=== PATIENT | female | born 1955 | race African-American/Black ===

== ENCOUNTER 2017-12-27 12:56 | Emergency (ER) | payer OTHER ==
[2017-12-27 13:19] VITALS: BP 147/77; PULSE 96; TEMP 98.7; BMI 44.0
[2017-12-27] MEDS ORDERED: KETOROLAC TROMETHAMINE 60 MG/2 ML VIAL IM ONE (13:50)
[2017-12-27] MEDS ORDERED: KETOROLAC TROMETHAMINE 60 MG/2 ML VIAL ONE (13:58)
--- NOTE | 2017-12-27 13:59 | PDOC ---
History of Present Illness - General Chief Complaint: Back Pain Stated Complaint: LEFT MIDDLE BACK PAIN Time Seen by Provider: 12/27/17 13:39 History Source: Patient Exam Limitations: No Limitations - History of Present Illness Initial Comments: 12/27/17 14:16 PAtient with significant musculoskeletal problems including chronic knee pain from knee replacement, chronic low back pain and currently involved with pain management and physical therapy for same. States had an onset of left upper back pain that gradually started this morning is progressively worsened. States feels similar to spasmodic low back pain but has not taken any medications for relief of same. Patient denies any cough, recent URIs, any fevers. Is no chest pain or palpitations, takes medication for hypertension but states is well- controlled. His antispasmodics in the past including cyclobenzaprine and uses ibuprofen for anti-inflammatory purposes. 12/27/17 17:14 Severity: reports: moderate Pain Location: reports: back Method of Injury: Yes: unknown Associated Symptoms (Fall): denies symptoms Past History - Travel Traveled outside of the country in the last 30 days: No Close contact w/someone who was outside of country & ill: No - Past Medical History Allergies/Adverse Reactions: Allergies Allergy/AdvReac Type Severity Reaction Status Date / Time No Known Allergies Allergy Verified 12/27/17 13:14 Home Medications: Ambulatory Orders Amlodipine Bes/Olmesartan Med [Kory 10-20 mg Tablet] 1 each PO DAILY 07/02/14 Lansoprazole [Prevacid -] 15 mg PO DAILY 07/02/14 Cyclobenzaprine HCl 10 mg PO Q8H PRN #14 tablet 12/27/17 Naproxen [Naprosyn -] 500 mg PO BID #30 tablet 12/27/17 Anemia: No Asthma: No Cancer: No Cardiac Disorders: No CVA: No COPD: No CHF: No Dementia: No Diabetes: No GI Disorders: Yes Disorders: No HTN: Yes Hypercholesterolemia: Yes Liver Disease: No Seizures: No Thyroid Disease: No - Surgical History Abdominal Surgery: No Appendectomy: No Cardiac Surgery: No Cholecystectomy: No Lung Surgery: No Neurologic Surgery: No Orthopedic Surgery: Yes - Suicide/Smoking/Psychosocial Hx Smoking History: Former smoker Have you smoked in the past 12 months: Yes Number of Cigarettes Smoked Daily: 1 Information on smoking cessation initiated: No Hx Alcohol Use: Yes (occas) Drug/Substance Use Hx: No Substance Use Type: None Hx Substance Use Treatment: No Review of Systems - Review of Systems Able to Perform ROS?: Yes Is the patient limited Hebrew proficient: Yes Constitutional: Yes: Symptoms Reported, See HPI, Malaise HEENTM: Yes: See HPI. No: Symptoms Reported Respiratory: Yes: See HPI. No: Symptoms reported, Cough, Shortness of Breath ABD/GI: No: Symptoms Reported Musculoskeletal: Yes: Symptoms Reported, See HPI, Back Pain (upepr left trapezius ) All Other Systems: Reviewed and Negative *Physical Exam - Vital Signs Last Vital Signs Temp Pulse Resp BP Pulse Ox 98.7 F 96 H 19 147/77 98 12/27/17 13:15 12/27/17 13:15 12/27/17 13:15 12/27/17 13:15 12/27/17 13:15 - Physical Exam General Appearance: Yes: Nourished, Appropriately Dressed, Apparent Distress, Mild Distress, Moderate Distress HEENT: positive: [place], Normal ENT Inspection, TMs Normal, Pharynx Normal Neck: positive: Supple. negative: Tender Respiratory/Chest: positive: Lungs Clear, Normal Breath Sounds, Other. negative : Decreased Breath Sounds, Wheezing Gastrointestinal/Abdominal: positive: Soft (no pleuritic chest pain) Musculoskeletal: positive: Normal Inspection, Decreased Range of Motion, Muscle Spasm (palpable spasm and point tenderness of the inferior aspect of left trapezius musculature. Has some mild palpable spasm noted along the paravertebral spinous muscles from waist up to scapula. Left arm has full range of motion, which reproduces some of this pain.). negative: Vertebral Tenderness Extremity: positive: Normal Capillary Refill, Normal Inspection, Normal Range of Motion. negative: Tender Integumentary: positive: Normal Color, Dry. negative: Swelling Neurologic: positive: student records specialist II-XII NML intact, Fully Oriented, Alert, Normal Mood/ Affect, Normal Response Progress Note - Progress Note Progress Note: Acute on chronic back pain. Patient with thoracic and trapezial pain. Will continue using cyclobenzaprine as patient reports good resolved, continue anti- inflammatories and continue with physical therapy on Saturday as previously scheduled. *DC/Admit/Observation/Transfer Diagnosis at time of Disposition: Acute exacerbation of chronic low back pain - Discharge Dispostion Disposition: HOME Condition at time of disposition: Stable Decision to Admit order: No - Prescriptions Prescriptions: Cyclobenzaprine HCl 10 mg PO Q8H PRN #14 tablet PRN Reason: spasm Naproxen [Naprosyn -] 500 mg PO BID #30 tablet - Referrals Referrals: Kaykay Garcia MD [Primary Care Provider] - - Patient Instructions Printed Discharge Instructions: DI for Thoracic Back Pain Additional Instructions: Rest, no heavy lifting or exercise until pain is resolved Hot soaks to neck and low back as often as possible/hot showers or Jacuzzis No massage or therapy until spasm is gone Continue Naprosyn 500 mg tablet, 1 tablet every 12 hours for the next 3 days then as needed for pain and swelling Cyclobenzaprine 1-10mg every 8 hours as needed for spasm If not significant improvement within 24 hours with medication and rest regime, followup with private physician for change in medications and /or therapy. - Post Discharge Activity Forms/Work/School Notes: Back to Work
== END 2017-12-27 14:16 | disposition home or self-care (01) ==
LOC: JERFT 12:56
PROC: 3E0233Z Introduction of Anti-inflammatory into Muscle, Percutaneous Approach (ICD-10-PCS; principal; 2017-12-27)
DX: M54.5 Low back pain (principal); G89.29 Other chronic pain
CPT/HCPCS: 96372; 99281-25

== ENCOUNTER 2018-01-17 21:07 | Observation (INO) | payer OTHER ==
[2018-01-17 21:20] VITALS: BMI 43.5
--- NOTE | 2018-01-17 21:21 | PDOC ---
Rapid Medical Evaluation Chief Complaint: Headache Time Seen by Provider: 01/17/18 21:18 Medical Evaluation: Allergies Allergy/AdvReac Type Severity Reaction Status Date / Time No Known Allergies Allergy Verified 01/17/18 21:17 01/17/18 21:20 I have performed a brief in-person evaluation of this patient. The patient presents with a chief complaint of: New onset PINZON w/ dizziness, nausea and "feeling off balanced" x 2 days. H/o HTN, well controlled on meds Pertinent physical exam findings:stable I have ordered the following:labs/esr/CTH The patient will proceed to the ED for further evaluation. Discharge Disposition - Diagnosis Headache Qualifiers: Headache type: unspecified Headache chronicity pattern: acute headache Intractability: intractable Qualified Code(s): R51 - Headache - Referrals - Patient Instructions - Post Discharge Activity
[2018-01-17] MEDS ORDERED: ACETAMINOPHEN INJECTION 100 ML IVPB ONE (21:48)
--- NOTE | 2018-01-17 21:54 | PDOC ---
Attending Attestation - HPI HPI: This patient is a 62 year old female, with PMHx of HTN, chronic lower back (3 herniated discs & knee pain (r knee replacement), who presents to the ED with complaints of a headache since yesterday. Patient reports sudden onset, rates 9/ 10, localized in occiput. She reports that she took Motrin without relief. She also reports dizziness, worse when lying down. She also endorses nausea and dry mouth. She states pain not improved today. She also mentioned that she didn t have an appetite yesterday or today. She states that she doesnt regular get sick or have headaches. Denies visual changes. 01/17/18 22:16 - Physicial Exam PE: GENERAL: Awake, alert, and fully oriented, in no acute distress HEAD: No signs of trauma EYES: PERRLA, EOMI, sclera anicteric, conjunctiva clear ENT: Auricles normal inspection, hearing grossly normal, nares patent, oropharynx clear without exudates. Dry mucosa NECK: Normal ROM, supple, no lymphadenopathy, JVD, or masses LUNGS: Breath sounds equal, clear to auscultation bilaterally. No wheezes, and no crackles HEART: Regular rate and rhythm, normal S1 and S2, no murmurs, rubs or gallops ABDOMEN: Soft, nontender, normoactive bowel sounds. No guarding, no rebound. No masses. EXTREMITIES: Normal range of motion, no edema. No clubbing or cyanosis. No cords, erythema, or tenderness NEUROLOGICAL: Dizzy when looking to periphery. Positional dizziness. No paraspinal tenderness. Cranial nerves II through XII grossly intact. Normal speech,normal gait. SKIN: Warm, Dry, normal turgor, no rashes or lesions noted. 01/17/18 22:21 <Whitney Temple - Last Filed: 01/17/18 22:21> - Resident Resident Name: Christopher Scott - ED Attending Attestation I have performed the following: I have examined & evaluated the patient, The case was reviewed & discussed with the resident, I agree w/resident's findings & plan - Medical Decision Making 01/17/18 23:22 Pt's sed rate is 19, WNL; labs are normal; WBC normal. 01/17/18 23:42 Pt has a normal head CT. Pt has normal labs. 01/17/18 23:43 BUN/Cr elevated; due to dehydration. Pt getting hydrated with 2 L NSS. 01/18/18 06:08 Pt has no xanthochromia; no sign of a bleed. Pt still has headache and she will be admitted to observation. Her PMD is aware. Pt will be treated for UTI <Lizz Odell - Last Filed: 01/18/18 06:09> Procedures - Lumbar Puncture Site: L4-L51 Volume(ml): 5 Lumbar Puncture Kit: Adult Opening Pressure(mmHg): 19 Traumatic Tap: Yes (multiple attempts, then on 5th try successful) Tubes Obtained: 4 Clear Fluid: Yes Complications: No <Lizz Odell - Last Filed: 01/18/18 06:09>
[2018-01-17] MEDS ORDERED: ACETAMINOPHEN 1000 MG/100 ML VIAL (NON FORMULARY) IVPB ONE (21:55)
[2018-01-17] MEDS ORDERED: METOCLOPRAMIDE HCL INJECTION 10 MG/2 ML VIAL IVPB ONE (21:55)
[2018-01-17] MEDS ORDERED: SODIUM CHLORIDE 0.9% 1000 ML INFUS.BAG IV ONE ×2 (21:55→23:21)
--- NOTE | 2018-01-17 21:55 | PDOC ---
History of Present Illness - General Chief Complaint: Headache Stated Complaint: HEADACHE, NAUSEA,LOSS OF APPETITE Time Seen by Provider: 01/17/18 21:18 History Source: Patient Exam Limitations: No Limitations - History of Present Illness Initial Comments: 01/17/18 21:49 The patient is a 62F with a PMH of HTN, chronic back pain and knee pain, who presents to the ER with complaints of headache. The patient states that she had a sudden onset, 9/10 pressure like headache located in her occiput without radiation, associated with nausea without the ability to vomit, unstable gait, and "feeling funny". She denies ever having symptoms like this in the past. She has never had a headache in the past. She denies fever, chills, CP, SOB, numbness, tingling but admits to generalized weakness. Past History - Past Medical History Allergies/Adverse Reactions: Allergies Allergy/AdvReac Type Severity Reaction Status Date / Time No Known Allergies Allergy Verified 01/17/18 21:17 Home Medications: Ambulatory Orders Amlodipine Bes/Olmesartan Med [Kory 10-20 mg Tablet] 1 each PO DAILY 07/02/14 Lansoprazole [Prevacid -] 15 mg PO DAILY 07/02/14 Cyclobenzaprine HCl 10 mg PO Q8H PRN #14 tablet 12/27/17 Naproxen [Naprosyn -] 500 mg PO BID #30 tablet 12/27/17 Anemia: No Asthma: No Cancer: No Cardiac Disorders: No CVA: No COPD: No CHF: No Dementia: No Diabetes: No GI Disorders: Yes Disorders: No HTN: Yes Hypercholesterolemia: Yes Liver Disease: No Seizures: No Thyroid Disease: No - Surgical History Abdominal Surgery: No Appendectomy: No Cardiac Surgery: No Cholecystectomy: No Lung Surgery: No Neurologic Surgery: No Orthopedic Surgery: Yes - Suicide/Smoking/Psychosocial Hx Smoking History: Current some day smoker Have you smoked in the past 12 months: Yes Number of Cigarettes Smoked Daily: 1 Information on smoking cessation initiated: No Hx Alcohol Use: Yes (occas) Drug/Substance Use Hx: No Substance Use Type: None Hx Substance Use Treatment: No Review of Systems - Review of Systems Able to Perform ROS?: Yes Comments:: 01/17/18 21:59 GENERAL/CONSTITUTIONAL: Positive for generalized weakness. No fever or chills. HEAD, EYES, EARS, NOSE AND THROAT: No change in vision. No ear pain or discharge. No sore throat. CARDIOVASCULAR: No chest pain, palpitations, or lightheadedness. RESPIRATORY: No cough, wheezing, shortness of breath, or hemoptysis. GASTROINTESTINAL: Positive for nausea. No vomiting, diarrhea, constipation, or abdominal pain. GENITOURINARY: No dysuria, frequency, hematuria, or change in urination. MUSCULOSKELETAL: No joint or muscle swelling or pain. No neck or back pain. SKIN: No rash or lesions. NEUROLOGIC: Positive for headache. No numbness, tingling, focal weakness, loss of consciousness, or change in strength/sensation. Is the patient limited Setswana proficient: No *Physical Exam - Vital Signs Last Vital Signs Temp Pulse Resp BP Pulse Ox 98.4 F 103 H 20 108/64 98 01/17/18 21:17 01/17/18 21:17 01/17/18 21:17 01/17/18 21:17 01/17/18 21:17 - Physical Exam Comments: 01/17/18 22:13 GENERAL: Well developed, well nourished. Awake and alert. No acute distress. HEENT: Normocephalic, atraumatic. Hearing grossly normal. Moist mucous membranes. PERRLA, EOMI. No conjunctival pallor. Sclera are non-icteric. NECK: Supple. Full ROM. No JVD. CARDIOVASCULAR: Regular rate and rhythm. No murmurs, rubs, or gallops. PULMONARY: No evidence of respiratory distress. Lungs clear to auscultation bilaterally. No wheezing, rales or rhonchi. ABDOMINAL: Soft. Non-tender. Non-distended. No rebound or guarding. GENITOURINARY: No CVA tenderness bilaterally. MUSCULOSKELETAL: Normal range of motion at all joints. No bony deformities or tenderness. EXTREMITIES: No cyanosis. No clubbing. No edema. No calf tenderness or swelling. SKIN: Warm and dry. Normal capillary refill. No rashes. No jaundice. NEUROLOGICAL: Alert, awake, appropriate. Cranial nerves 2-12 intact. No deficits to light touch and temperature in face, upper extremities and lower extremities. 5/5 strength in deltoids, biceps, triceps, quadriceps, hamstrings, and gastrocnemius. Finger to nose normal bilaterally. Normal speech. Gait is normal without ataxia. PSYCHIATRIC: Cooperative. Good eye contact. Appropriate mood and affect. Moderate Sedation - Procedure Monitoring Vital Signs: Procedure Monitoring Vital Signs Temperature 98.4 F 01/17/18 21:17 Pulse Rate 103 H 01/17/18 21:17 Respiratory Rate 20 01/17/18 21:17 Blood Pressure 108/64 01/17/18 21:17 O2 Sat by Pulse Oximetry (%) 98 01/17/18 21:17 ED Treatment Course - LABORATORY CBC & Chemistry Diagram: 01/17/18 21:32 01/17/18 21:32 Medical Decision Making - Medical Decision Making 01/17/18 22:25 The patient is a 62M with a PMH of HTN who presents to the ER with complaints of acute onset headache, concerning for SAH vs cerebellar stroke causing vertiginous symptoms. Pt is noted to be hypotensive. Labs and CTH pending. If pt does not improve, will perform lumbar tap. Symptoms have been present for over 24 hours so she is out of the range for TPA. Will d/w neurology after CTH returns. 01/17/18 23:12 Pt's pain not improved with tylenol and reglan. Will give 4 morphine and get consent for LP. 01/18/18 00:32 Case d/w Dr. Hughes who agrees to keep the patient for MRI in the morning for further evaluation of headache. 01/18/18 03:10 CSF negative. I have endorsed the patient to Dr. Garcia for admission to evaluate hypotension and headache. *DC/Admit/Observation/Transfer Diagnosis at time of Disposition: Headache Qualifiers: Headache type: unspecified Headache chronicity pattern: acute headache Intractability: intractable Qualified Code(s): R51 - Headache Hypotension Qualifiers: Hypotension type: unspecified hypotension type Qualified Code(s): I95.9 - Hypotension, unspecified - Discharge Dispostion Condition at time of disposition: Guarded Decision to Admit order: Yes - Referrals - Patient Instructions - Post Discharge Activity
[2018-01-17 22:12] LABS: BASO % 0.7 % (0-2.0); HEMATOCRIT 40.7 % (32.4-45.2); LYMPH % 41.1 % (8-40); MCH 28.6 pg (25.7-33.7); MCHC 34.3 g/dl (32.0-36.0); MEAN CELL VOLUME 83.3 fl (80-96); MEAN PLT VOLUME 10.6 fl (7.5-11.1); MONO % 9.1 % (3.8-10.2); NEUT % 45.1 % (42.8-82.8); PLATELET COUNT 225 K/MM3 (134-434); RBC 4.89 M/mm3 (3.60-5.2); RDW 14.4 % (11.6-15.6); WHITE BLOOD COUNT 6.4 K/mm3 (4.0-10.0)
[2018-01-17] MEDS ORDERED: METOCLOPRAMIDE HCL INJECTION 10 MG/2 ML VIAL ONE (22:32)
[2018-01-17 22:56] LABS: ALBUMIN 3.6 g/dl (3.4-5.0); ALK PHOS 90 U/L (45-117); ANION GAP 8 MMOL/L (8-16); BILIRUBIN,TOTAL 0.3 mg/dL (0.2-1); BLOOD UREA NITROGEN 22 mg/dL (7-18); CHLORIDE 102 mmol/L (98-107); CO2 26 mmol/L (21-32); CREATININE 1.4 mg/dL (0.55-1.3); GLUCOSE,RANDOM 90 mg/dL (74-106); POTASSIUM 3.6 mmol/L (3.5-5.1); SGOT/AST 23 U/L (15-37); SGPT/ALT 27 U/L (13-61); SODIUM 137 mmol/L (136-145); TOT PROT 7.6 g/dl (6.4-8.2)
[2018-01-17] MEDS ORDERED: morphine CARPU-JECT 4 MG/1 ML DISP.SYRIN IVPUSH ONE ×2 (23:12→23:25)
[2018-01-17 23:15] LABS: URINE APPEARANCE CLOUDY; URINE BILIRUBIN NEGATIVE (<2.0 mg/dL); URINE COLOR YELLOW; URINE GLUCOSE (UA) NEGATIVE (NEGATIVE); URINE KETONE NEGATIVE (NEGATIVE); URINE LEUK ESTERASE 2+ (NEGATIVE); URINE NITRITE NEGATIVE (NEGATIVE); URINE PROTEIN NEGATIVE (NEGATIVE); URINE UROBILINOGEN NEGATIVE mg/dL (0.2-1.0)
[2018-01-17] MEDS ORDERED: MECLIZINE HCL 25 MG TABLET (FP) PO ONE (23:22)
[2018-01-17] MEDS ORDERED: morphine SULFATE 4 MG/ML VIAL ONE (23:24)
[2018-01-17] MEDS ORDERED: MECLIZINE HCL 25 MG TABLET (FP) ONE (23:24)
[2018-01-17 23:27] LABS: EPI CELLS MANY /HPF (FEW); URINE BACTERIA FEW /hpf (NONE SEEN); URINE MUCUS RARE; YEAST RARE
[2018-01-17 23:28] LABS: INR 1.03 (0.83-1.09); PROTHROMBIN TIME (PATIENT) 12.2 SEC (9.7-13.0)
[2018-01-17] MEDS ORDERED: MORPHINE SULFATE 2 MG/ML VIAL ONE (23:29)
[2018-01-17] MEDS ORDERED: CEFTRIAXONE 1,000 MG in DEXTROSE 5%-WATER - 50 ML IVPB ONE (23:41)
[2018-01-18] MEDS ORDERED: LIDOCAINE HCL 1%, 10 MG/ML (50 mL VIAL) SQ ONE (00:22)
[2018-01-18 02:12] LABS: CSF APPEARANCE CLEAR; CSF COLOR PINK
[2018-01-18 02:13] LABS: CSF WBC 2
[2018-01-18 02:15] LABS: CSF APPEARANCE CLEAR; CSF COLOR COLORLESS; CSF WBC 0
[2018-01-18 02:52] LABS: BF GLUCOSE (CSF ONLY) 57 mg/dL (40-70)
[2018-01-18 02:59] LABS: BF GLUCOSE (CSF ONLY) 57 mg/dL (40-70)
[2018-01-18 03:00] LABS: BF GLUCOSE (CSF ONLY) 57 mg/dL (40-70)
[2018-01-18] MEDS ORDERED: CEFTRIAXONE 1,000 MG in DEXTROSE 5%-WATER - 50 ML IVPB ONE (03:37)
[2018-01-18] MEDS ORDERED: CEFTRIAXONE 1 GM/50 ML BAG ONE ×2 (03:38→14:36)
[2018-01-18] MEDS ORDERED: CEFTRIAXONE 1,000 MG in DEXTROSE 5%-WATER - 50 ML IVPB SCH (13:30)
[2018-01-18] MEDS ORDERED: PATIENT'S OWN MEDICATION (NON-FORMULARY) (Gabapentin [Gabapentin] 600 MG) PO SCH (13:30)
[2018-01-18] MEDS ORDERED: GABAPENTIN 300 MG CAPSULE (FP) PO SCH (14:00)
[2018-01-18] MEDS ORDERED: oxyCODONE HCL 5 MG TABLET PO ONE (14:30)
[2018-01-18] MEDS ORDERED: ACETAMINOPHEN 325 MG TABLET (FP) PO ONE (14:30)
[2018-01-18] MEDS ORDERED: oxyCODONE HCL 10 MG SUSTAINED ACTING TABLET ONE (14:35)
[2018-01-18] MEDS ORDERED: PANTOPRAZOLE 40 MG TABLET (FP) ONE (14:35)
[2018-01-18] MEDS ORDERED: ACETAMINOPHEN 325 MG TABLET (FP) ONE (14:35)
[2018-01-18] MEDS ORDERED: METOPROLOL TARTRATE 50 MG TABLET (FP) ONE (14:36)
[2018-01-18] MEDS: PANTOPRAZOLE 40 MG TABLET (FP) PO SCH (14:48)
[2018-01-18] MEDS: METOPROLOL TARTRATE 50 MG TABLET (FP) PO SCH (14:48)
[2018-01-18] MEDS: amLODIPine BESYLATE 10 MG TABLET (FP) PO SCH (14:48)
--- NOTE | 2018-01-18 15:51 | CON.NEURO ---
Consult - Alcohol/Substance Use Hx Alcohol Use: Yes (occas) - Smoking History Smoking history: Current some day smoker Have you smoked in the past 12 months: Yes Aproximately how many cigarettes per day: 1 Home Medications - Allergies Allergies/Adverse Reactions: Allergies Allergy/AdvReac Type Severity Reaction Status Date / Time No Known Allergies Allergy Verified 01/17/18 21:17 - Home Medications Home Medications: Ambulatory Orders Amlodipine Bes/Olmesartan Med [Kory 10-20 mg Tablet] 1 each PO DAILY 07/02/14 Lansoprazole [Prevacid -] 15 mg PO DAILY 07/02/14 Cyclobenzaprine HCl 10 mg PO Q8H PRN #14 tablet 12/27/17 Naproxen [Naprosyn -] 500 mg PO BID #30 tablet 12/27/17 Gabapentin 600 mg PO DAILY 01/18/18 Metoprolol Tartrate 50 mg PO DAILY 01/18/18 Oxycodone HCl/Acetaminophen [Percocet 10-325 mg Tablet] 1 each PO DAILY Zolpidem Tartrate 10 mg PO DAILY 01/18/18 Physical Exam-Neuro Vital Signs: Vital Signs Temperature 98 F 01/18/18 14:45 Pulse Rate 91 H 01/18/18 14:45 Respiratory Rate 18 01/18/18 14:45 Blood Pressure 127/69 01/18/18 14:45 O2 Sat by Pulse Oximetry (%) 98 01/18/18 14:45 Labs: CBC, BMP 01/17/18 21:32 01/17/18 21:32 INR, PTT INR 1.03 (0.83-1.09) 01/17/18 23:00 Assessment/Plan cc Severe headhace since January 16 HPI 62 year old female hsitory of HTN, Low back pain, knee pain ( s/p knee replacement). She has severe headhace in occpital region , and it was associated with dizziness, and worse with laying down. Paitnet has ct head it was unremarkable. There is no history of migraine, no fever, LOC OR seizure like activity. Patient took motrin and it did not get better. PMH as above Social History, FH, ROS reviewed in chart Medication Ceftrioxone, gabapentin, ambien, metoprolol, amlodipien, protonix Neurological Examination Complain of pain 2/10, alert oriented x 3 speech is normal, no neck stiffness EOMI, Pupils is reactive, no face asymmetry Motor 5/5 all ext sensation is normal, gait not tested CT head unremarkable csf , WBC IS 2, PROTEIN IS 37 mg and rbc is 150 and other tube has rbc of 6( Most likley to be traumatic spinal tap) Assessment 1. Severe thunderclap headhace, etiology unclear, unlikley to be Meningitis. CSF is not sent in four tubes so it is not clear if csf was clearing of blood or all four of tube has similar color . PLAN: Suggest to do mri of brain and mra of brain for acute thunderclap headhace , unlikley to be SAH -Continue supportive care and work up for hypotension -NSAID PRN for headahce Thanking you so much Cricket Hughes MD
--- NOTE | 2018-01-18 21:22 | EKG ---
Test Reason : Blood Pressure : / mmHG Vent. Rate : 103 BPM Atrial Rate : 103 BPM P-R Int : 154 ms QRS Dur : 088 ms QT Int : 350 ms P-R-T Axes : 065 020 050 degrees QTc Int : 458 ms SINUS TACHYCARDIA OTHERWISE NORMAL ECG WHEN COMPARED WITH ECG OF 15-OCT-2008 11:06, NO SIGNIFICANT CHANGE WAS FOUND Confirmed by GABRIEL BERUMEN MD ([id number]) on 01/18/2018 9:21:52 PM Referred By: Confirmed By:GABRIEL BERUMEN MD
[2018-01-18] MEDS: ZOLPIDEM TARTRATE 5 MG TABLET PO PRN (21:31)
--- NOTE | 2018-01-18 21:51 | HP ---
Admitting History and Physical - Admission History of Present Illness: The patient is a 62F with a PMH of HTN, obesity, chronic back pain and knee pain , who presents to the ER with complaints of headache. The patient states that she had a sudden onset, 9/10 pressure like headache located in her occiput without radiation, associated with nausea without the ability to vomit, unstable gait, and "feeling funny". She denies ever having symptoms like this in the past. States took multiple doses of NSAIDs with no improvement in symptoms. She has never had a headache in the past. She denies fever, chills, CP , SOB, numbness, tingling but admits to generalized weakness. History Source: Patient, Medical Record Limitations to Obtaining History: No Limitations - Past Medical History Cardiovascular: Yes: HTN, Hyperlipdemia ...: No Musculoskeletal: Yes: Chronic low back pain, Osteoarthritis - Smoking History Smoking history: Current some day smoker Have you smoked in the past 12 months: Yes Aproximately how many cigarettes per day: 1 - Alcohol/Substance Use Hx Alcohol Use: Yes (social) - Social History Usual Living Arrangement: Yes: With Spouse ADL: Independent History of Recent Travel: No Home Medications - Allergies Allergies/Adverse Reactions: Allergies Allergy/AdvReac Type Severity Reaction Status Date / Time No Known Allergies Allergy Verified 01/17/18 21:17 - Home Medications Home Medications: Ambulatory Orders Amlodipine Bes/Olmesartan Med [Kory 10-20 mg Tablet] 1 each PO DAILY 07/02/14 Lansoprazole [Prevacid -] 15 mg PO DAILY 07/02/14 Cyclobenzaprine HCl 10 mg PO Q8H PRN #14 tablet 12/27/17 Naproxen [Naprosyn -] 500 mg PO BID #30 tablet 12/27/17 Gabapentin 600 mg PO DAILY 01/18/18 Metoprolol Tartrate 50 mg PO DAILY 01/18/18 Oxycodone HCl/Acetaminophen [Percocet 10-325 mg Tablet] 1 each PO DAILY Zolpidem Tartrate 10 mg PO DAILY 01/18/18 Review of Systems - Review of Systems Constitutional: denies: Chills, Fever, Night Sweats Eyes: denies: Blurred Vision, Photophobia HENT: reports: No Symptoms Neck: reports: No Symptoms Cardiovascular: denies: Chest Pain, Palpitations, Shortness of Breath Respiratory: reports: No Symptoms Gastrointestinal: reports: No Symptoms Genitourinary: reports: No Symptoms Musculoskeletal: reports: Back Pain, Muscle Weakness, Other (unsteady gait) Neurological: reports: Dizziness, Headache, Unsteady Gait Endocrine: reports: No Symptoms Hematology/Lymphatic: reports: No Symptoms Psychiatric: reports: No Symptoms Physical Examination Vital Signs: Vital Signs Temperature 97.4 F L 01/18/18 17:54 Pulse Rate 92 H 01/18/18 17:54 Respiratory Rate 18 01/18/18 17:54 Blood Pressure 115/70 01/18/18 17:54 O2 Sat by Pulse Oximetry (%) 96 01/18/18 18:07 Constitutional: Yes: Well Nourished, Obese Eyes: Yes: Conjunctiva Clear, EOM Intact HENT: Yes: Atraumatic, Normocephalic Neck: Yes: Supple, Trachea Midline Cardiovascular: Yes: Regular Rate and Rhythm Respiratory: Yes: Regular, CTA Bilaterally Gastrointestinal: Yes: Normal Bowel Sounds, Soft, Abdomen, Obese ...Rectal Exam: Yes: Deferred Renal/: Yes: WNL Breast(s): Yes: WNL Musculoskeletal: Yes: Back Pain, Other (joint pain) Edema: No Peripheral Pulses WNL: Yes Integumentary: Yes: WNL Neurological: Yes: Unsteady Gait ...Motor Strength: WNL Psychiatric: Yes: WNL Labs: CBC, BMP 01/17/18 21:32 01/17/18 21:32 Problem List - Problems (1) HTN (hypertension) Code(s): I10 - ESSENTIAL (PRIMARY) HYPERTENSION (2) Obesity (BMI 30-39.9) Code(s): E66.9 - OBESITY, UNSPECIFIED (3) Unsteady gait Code(s): R26.81 - UNSTEADINESS ON FEET (4) Headache Code(s): R51 - HEADACHE Qualifiers: Headache type: unspecified Headache chronicity pattern: acute headache Intractability: intractable Qualified Code(s): R51 - Headache (5) Hypotension Code(s): I95.9 - HYPOTENSION, UNSPECIFIED Qualifiers: Hypotension type: unspecified hypotension type Qualified Code(s): I95.9 - Hypotension, unspecified (6) Acute exacerbation of chronic low back pain Code(s): M54.5 - LOW BACK PAIN; G89.29 - OTHER CHRONIC PAIN Assessment/Plan # new onset headaches appreciate neurology consult / follow up report less episodes of headache but currently ++ headache Indocin TID per Neurology add Mag / periactin as supplement Ct of head / MRI /MRA reviewed # HTN trend BP all home meds have NOT been renewed only renewed amlodipine # constipation Miralax / colace # chronic Lower Back pain f
[2018-01-19 07:50] LABS: BASO % 0.6 % (0-2.0); EOS % 3.6 % (0-4.5); HEMATOCRIT 37.3 % (32.4-45.2); HEMOGLOBIN 12.9 GM/dL (10.7-15.3); LYMPH % 33.8 % (8-40); MCH 28.8 pg (25.7-33.7); MCHC 34.5 g/dl (32.0-36.0); MEAN CELL VOLUME 83.4 fl (80-96); MEAN PLT VOLUME 10.4 fl (7.5-11.1); MONO % 11.1 % (3.8-10.2); NEUT % 50.9 % (42.8-82.8); PLATELET COUNT 175 K/MM3 (134-434); RBC 4.47 M/mm3 (3.60-5.2); RDW 14.2 % (11.6-15.6); WHITE BLOOD COUNT 5.1 K/mm3 (4.0-10.0)
[2018-01-19 08:54] LABS: ALBUMIN 3.2 g/dl (3.4-5.0); ALK PHOS 80 U/L (45-117); ANION GAP 10 MMOL/L (8-16); BILIRUBIN,TOTAL 0.3 mg/dL (0.2-1); BLOOD UREA NITROGEN 19 mg/dL (7-18); CALCIUM 8.6 mg/dL (8.5-10.1); CHLORIDE 106 mmol/L (98-107); CHOLESTEROL 207 mg/dL (50-200); CO2 26 mmol/L (21-32); CREATININE 1.1 mg/dL (0.55-1.3); GLUCOSE,RANDOM 78 mg/dL (74-106); HDL CHOLESTEROL 47 mg/dL (40-60); POTASSIUM 4.1 mmol/L (3.5-5.1); SGOT/AST 17 U/L (15-37); SGPT/ALT 21 U/L (13-61); SODIUM 142 mmol/L (136-145); TOT PROT 6.6 g/dl (6.4-8.2); TRIGLYCERIDES 113 mg/dL (0-150)
[2018-01-19] MEDS: METOPROLOL TARTRATE 50 MG TABLET (FP) PO SCH (10:28)
[2018-01-19] MEDS: amLODIPine BESYLATE 10 MG TABLET (FP) PO SCH (10:28)
[2018-01-19] MEDS: GABAPENTIN 300 MG CAPSULE (FP) PO SCH (10:28)
[2018-01-19] MEDS: PANTOPRAZOLE 40 MG TABLET (FP) PO SCH (10:28)
--- NOTE | 2018-01-19 11:31 | PN ---
Progress Note (short form) - Note Progress Note: HPI 62 year old female hsitory of HTN, Low back pain, knee pain ( s/p knee replacement). She has severe headhace in occpital region , and it was associated with dizziness, and worse with laying down. Paitnet has ct head it was unremarkable. There is no history of migraine, no fever, LOC OR seizure like activity. Patient had mri of brain and mra of brain . Patient having headhace comes and goes . Her headhace last 20 minute and laying down helps her. Neurological Examination Complain of pain 2/10, alert oriented x 3 speech is normal, no neck stiffness EOMI, Pupils is reactive, no face asymmetry Motor 5/5 all ext sensation is normal, gait not tested CT head unremarkable csf , WBC IS 2, PROTEIN IS 37 mg and rbc is 150 and other tube has rbc of 6( Most likley to be traumatic spinal tap) mri of brain and mra is pending Assessment 1. Severe thunderclap headhace, etiology unclear, unlikley to be Meningitis. she is feeling better but headhace still coming back and last 20 m inute PLAN: mri of brain and mra of brain is normal, trial of indomethacin 25 mg po tid - supportive care Thanking you so much Cricket Hughes MD
[2018-01-19] MEDS ORDERED: cefTRIAXone SODIUM 1 GM VIAL ONE ×2 (12:42→13:08)
[2018-01-19] MEDS ORDERED: DEXTROSE 5%-WATER - 50 ML IVPB ONE ×2 (12:43→13:08)
[2018-01-19] MEDS: CEFTRIAXONE 1 GM in DEXTROSE 5%-WATER - 50 ML IVPB SCH (13:10)
[2018-01-19] MEDS ORDERED: PT OWN MED DRAWER 7, Y5N ONE ×2 (13:42→22:41)
[2018-01-19] MEDS: INDOMETHACIN 25 MG CAPSULE PO SCH ×2 (13:47→22:57)
--- NOTE | 2018-01-19 15:44 | PN ---
Progress Note (short form) - Note Progress Note: seen and examined in room patient lying in bed + headache "painful " to interact c/o constipation Vital Signs Period Temp Pulse Resp BP Sys/Orozco Pulse Ox Last 24 Hr 97.4 F-98.4 F 92-109 18-20 105-125/53-70 96 neck supple / no nodes heart s1/S2 lungs clear bilat abd soft non tender ext no edema CBC, BMP 01/19/18 06:32 01/19/18 06:32 Microbiology 01/18/18 01:23 Cerebral Spinal Fluid - Lumbar Puncture Gram Stain - Final 01/18/18 01:23 Cerebral Spinal Fluid - Lumbar Puncture CSF Culture - Preliminary NO GROWTH OBTAINED AFTER 24 HOURS INCUBATION, REINCUBATED. Active Medications Amlodipine Besylate (Norvasc -) 10 mg PO DAILY [facility] Last Admin: 01/19/18 10:28 Dose: 10 mg Cyproheptadine HCl (Periactin -) 4 mg PO HS [facility] Docusate Sodium (Colace -) 200 mg PO BID [facility] Gabapentin (Neurontin -) 600 mg PO DAILY [facility] Last Admin: 01/19/18 10:28 Dose: 600 mg Ceftriaxone Sodium 1 gm/ (Dextrose) 50 mls @ 100 mls/hr IVPB DAILY [facility] Last Admin: 01/19/18 13:10 Dose: 100 mls/hr Indomethacin (Indocin -) 25 mg PO TID [facility] Last Admin: 01/19/18 13:47 Dose: 25 mg Magnesium Oxide (Mag-Ox -) 400 mg PO BID@0800,2000 [facility] Metoprolol Tartrate (Lopressor -) 50 mg PO DAILY [facility] Last Admin: 01/19/18 10:28 Dose: 50 mg Pantoprazole Sodium (Protonix -) 40 mg PO DAILY [facility] Last Admin: 01/19/18 10:28 Dose: 40 mg Polyethylene Glycol (Miralax (For Daily Use) -) 17 gm PO TID [facility] Zolpidem Tartrate (Ambien -) 10 mg PO HS PRN PRN Reason: INSOMNIA Last Admin: 01/18/18 21:31 Dose: 10 mg # new onset headaches appreciate neurology consult / follow up report less episodes of headache but currently ++ headache Indocin TID per Neurology add Mag / periactin as supplement Ct of head / MRI /MRA reviewed # HTN trend BP all home meds have NOT been renewed only renewed amlodipine # constipation Miralax / colace # chronic Lower Back pain followed as out patient by pain Managmt Problem List - Problems (1) HTN (hypertension) Code(s): I10 - ESSENTIAL (PRIMARY) HYPERTENSION (2) Obesity (BMI 30-39.9) Code(s): E66.9 - OBESITY, UNSPECIFIED (3) Unsteady gait Code(s): R26.81 - UNSTEADINESS ON FEET (4) Headache Code(s): R51 - HEADACHE Qualifiers: Headache type: unspecified Headache chronicity pattern: acute headache Intractability: intractable Qualified Code(s): R51 - Headache (5) Hypotension Code(s): I95.9 - HYPOTENSION, UNSPECIFIED Qualifiers: Hypotension type: unspecified hypotension type Qualified Code(s): I95.9 - Hypotension, unspecified (6) Acute exacerbation of chronic low back pain Code(s): M54.5 - LOW BACK PAIN; G89.29 - OTHER CHRONIC PAIN
[2018-01-19] MEDS: POLYETHYLENE GLYCOL 3350 119 GM BTL PO SCH ×2 (15:45→22:56)
--- NOTE | 2018-01-19 17:14 | EKG ---
Test Reason : Blood Pressure : / mmHG Vent. Rate : 095 BPM Atrial Rate : 095 BPM P-R Int : 166 ms QRS Dur : 084 ms QT Int : 334 ms P-R-T Axes : 064 006 019 degrees QTc Int : 419 ms NORMAL SINUS RHYTHM NORMAL ECG WHEN COMPARED WITH ECG OF 17-JAN-2018 21:25, NO SIGNIFICANT CHANGE WAS FOUND Confirmed by GABRIEL BERUMEN MD ([id number]) on 01/19/2018 5:14:30 PM Referred By: Felicity SIMON Confirmed By:GABRIEL BERUMEN MD
[2018-01-19] MEDS ORDERED: CYPROHEPTADINE HCL 4 MG TABLET PO SCH (22:00)
[2018-01-19] MEDS: ZOLPIDEM TARTRATE 5 MG TABLET PO PRN (22:56)
[2018-01-19] MEDS: DOCUSATE SODIUM 100 MG CAPSULE (FP) PO SCH (22:57)
[2018-01-19] MEDS: MAGNESIUM OXIDE 400 MG TABLET (FP) PO SCH (22:57)
[2018-01-19] MEDS ORDERED: oxyCODONE HCL 5 MG TABLET ONE (23:18)
[2018-01-19] MEDS ORDERED: ACETAMINOPHEN 325 MG TABLET (FP) ONE (23:18)
[2018-01-19] MEDS ORDERED: oxyCODONE HCL 5 MG TABLET PO PRN (23:22)
[2018-01-19] MEDS ORDERED: ACETAMINOPHEN 325 MG TABLET (FP) PO PRN (23:24)
[2018-01-19] MEDS ORDERED: ACETAMINOPHEN 325 MG TABLET (FP) PO ONE (23:30)
[2018-01-19] MEDS ORDERED: oxyCODONE HCL 5 MG TABLET PO ONE (23:30)
[2018-01-19] MEDS ORDERED: morphine SULFATE 4 MG/ML VIAL ONE (23:33)
[2018-01-19] MEDS ORDERED: MORPHINE SULFATE 2 MG/ML VIAL IVPUSH ONE (23:35)
--- NOTE | 2018-01-19 23:40 | HOSP ---
Subjective - Review of Symptoms Subjective: Was called to bedside by the nurse as the patient had choked while taking her PM pills. Per nursing, the patient took all of her PM pills at once like she always has. Shortly after taking the pills, nursing states that the patient started to struggle to breathe and subsequently became stridorous, then her airflow stopped. The nurse performed the heimlich maneuver, dislodging a pill which the patient immediately swallowed. Patient states that she feels better and is not struggling to breathe, but feels as if her pill is stuck in her throat. On further interview, the patient states that she has been having some difficulty with taking her pills since Saturday of this month. Physical Examination Vital Signs: Vital Signs Temperature 97.7 F 01/19/18 17:00 Pulse Rate 93 H 01/19/18 17:00 Respiratory Rate 20 01/19/18 17:00 Blood Pressure 115/59 L 01/19/18 17:00 O2 Sat by Pulse Oximetry (%) 96 01/19/18 13:00 Findings/Remarks: On assessment, the patient is a&o x3, is speaking in full sentences and is not struggling to breathe. Neuro exam nonfocal. CN II-X intact b/l. Lungs CTA b/l. No stridor or wheezing heard. HEENT clear with no evidence of foreign body seen. No tenderness to palpation in the throat region. Labs: CBC, BMP 01/19/18 06:32 01/19/18 06:32 Hospitalist Encounter Assessment: Patient had choking episode in this evening. Per patient she has never had any similar episodes in the past, but does endorse difficulty with taking pills since Saturday. CT head and MRI brain both negative for infarct during this admission; stroke unlikely. This may be a one time choking episode, but since the patient has a recent history of dysphagia, underlying pathology must be ruled out. Nursing has already notified Dr. Garcia, the patient's PCP. Primary Physician Notified: Kaykay Garcia I Recommendations/Interventions: Will make patient strict NPO for now until seen by [facility]. Aspiration/dysphagia precautions Will order 2mg IV morphine 1 time as patient was supposed to receive PO oxy 10mg and is currently in pain. Dr. Garcia contacted by nurse and is aware of tonight's events. [facility] consulted to see patient in AM as per Dr. Garcia. Visit type - Emergency Visit Emergency Visit: Yes ED Registration Date: 01/18/18 Care time: The patient presented to the Emergency Department on the above date and was hospitalized for further evaluation of their emergent condition. - New Patient This patient is new to me today: Yes Date on this admission: 01/20/18 - Critical Care Critical Care patient: No
[2018-01-20 06:50] LABS: BASO % 0.5 % (0-2.0); HEMATOCRIT 38.5 % (32.4-45.2); HEMOGLOBIN 12.4 GM/dL (10.7-15.3); LYMPH % 48.1 % (8-40); MCH 27.4 pg (25.7-33.7); MCHC 32.4 g/dl (32.0-36.0); MEAN CELL VOLUME 84.6 fl (80-96); MEAN PLT VOLUME 10.5 fl (7.5-11.1); MONO % 10.2 % (3.8-10.2); NEUT % 37.2 % (42.8-82.8); PLATELET COUNT 184 K/MM3 (134-434); RBC 4.54 M/mm3 (3.60-5.2); RDW 14.4 % (11.6-15.6); WHITE BLOOD COUNT 4.8 K/mm3 (4.0-10.0)
[2018-01-20] MEDS: POLYETHYLENE GLYCOL 3350 119 GM BTL PO SCH ×2 (07:13→13:07)
[2018-01-20] MEDS: INDOMETHACIN 25 MG CAPSULE PO SCH ×2 (07:13→13:08)
[2018-01-20 08:36] LABS: ANION GAP 9 MMOL/L (8-16); BLOOD UREA NITROGEN 17 mg/dL (7-18); CALCIUM 8.7 mg/dL (8.5-10.1); CHLORIDE 105 mmol/L (98-107); CO2 25 mmol/L (21-32); CREATININE 0.9 mg/dL (0.55-1.3); GLUCOSE,RANDOM 92 mg/dL (74-106); MAGNESIUM 2.1 mg/dL (1.8-2.4); POTASSIUM 3.9 mmol/L (3.5-5.1); SODIUM 139 mmol/L (136-145)
[2018-01-20] MEDS ORDERED: DEXTROSE 5%-WATER - 50 ML IVPB ONE (09:16)
[2018-01-20] MEDS ORDERED: cefTRIAXone SODIUM 1 GM VIAL ONE (09:16)
--- NOTE | 2018-01-20 09:24 | PN ---
Progress Note (short form) - Note Progress Note: HPI 62 year old female hsitory of HTN, Low back pain, knee pain ( s/p knee replacement). She has severe headhace in occpital region , and it was associated with dizziness, and worse with laying down. Paitnet has ct head it was unremarkable. There is no history of migraine, no fever, LOC OR seizure like activity. Patient had mri of brain and mra of brain . Patient having headhace comes and goes . Her headache is better, she has chocking incident today am. Neurological Examination Headache is resolved speech is normal, no neck stiffness EOMI, Pupils is reactive, no face asymmetry Motor 5/5 all ext sensation is normal, gait not tested CT head unremarkable csf , WBC IS 2, PROTEIN IS 37 mg and rbc is 150 and other tube has rbc of 6( Most likley to be traumatic spinal tap) mri of brain and mra of brain unremarkable Assessment/Plan 1. Severe thunderclap headhace, etiology unclear, unlikley to be Meningitis. continue indocin and follow up prn as outpatient Thanking you so much Cricket Hughes MD
[2018-01-20] MEDS: CEFTRIAXONE 1 GM in DEXTROSE 5%-WATER - 50 ML IVPB SCH (09:48)
[2018-01-20] MEDS: PANTOPRAZOLE 40 MG TABLET (FP) PO SCH (09:48)
[2018-01-20] MEDS: GABAPENTIN 300 MG CAPSULE (FP) PO SCH (09:48)
[2018-01-20] MEDS: MAGNESIUM OXIDE 400 MG TABLET (FP) PO SCH (09:48)
[2018-01-20] MEDS: DOCUSATE SODIUM 100 MG CAPSULE (FP) PO SCH (09:48)
[2018-01-20] MEDS: amLODIPine BESYLATE 10 MG TABLET (FP) PO SCH (09:48)
[2018-01-20] MEDS: METOPROLOL TARTRATE 50 MG TABLET (FP) PO SCH (09:48)
[2018-01-20 11:09] VITALS: TEMP 97.9
--- NOTE | 2018-01-20 11:22 | CONS ---
DATE OF CONSULTATION: 01/20/2018 HISTORY OF PRESENT ILLNESS: The patient is a 62-year-old woman with past medical history of chronic back pain, diffuse osteoarthritis status post right total knee replacement who was admitted on January 18 with complaints of headache. The patient on admission underwent blood work, which showed elevated BUN 22 to creatinine 1.4, normal sodium 137, potassium 3.6, chloride 102, CO2 was 26. CBC showed normal WBCs 8.4, hemoglobin 14, platelet count 225. MRI and MRA of the brain were negative. Patient's repeat blood work on January 19 showed WBCs 5.1, hemoglobin 12.9, platelet count 175. BUN improved to 19 but still elevated and creatinine normalized to 1.1. The patient is ambulating using a straight cane, which is her premorbid function, but she feels a little dizzy. She loses her balance at times. She also had an episode of choking this morning and was seen by the hospitalist. The patient states she is scheduled to go home later today. The patient was made n.p.o. pending speech pathology consultation. Other tests done during this hospitalization included a CT of the head, which showed no evidence of acute intracranial pathology. PAST MEDICAL HISTORY: As above. She also has a history of hypertension, obesity, hyperlipidemia. Again, she has chronic back pain and states she was scheduled for surgery at some point. PAST SURGICAL HISTORY: As above. SOCIAL HISTORY: Lives in an apartment with an elevator for access. Premorbidly used a cane. Current function, ambulating on the unit with a straight cane but unsteady. REVIEW OF SYSTEMS: She does get headache, which comes and goes but no lightheadedness or sinan dizziness. She has had episodes of dizziness. Again, she did have an episode of difficulty swallowing a pill. No blurry vision or double vision. No chest pain or shortness of breath. She has chronic back pain, chronic joint arthralgias including the left knee, also discomfort in her left thigh at night. No numbness or tingling in the upper and lower extremities. No significant weight change. No fever or chills. She did move her bowels this morning for the first time since she was hospitalized. PHYSICAL EXAMINATION: General: An overweight woman who was seen both sitting and standing as well as ambulating with a cane who is in no acute distress. HEENT: She is normocephalic and atraumatic. Her extraocular muscles appear intact. She has no obvious facial weakness. No oral ulcers. Neck: Supple with good cervical range of motion. Musculoskeletal: She has diffuse tenderness in the lumbosacral paraspinal musculature with limited lumbar range of motion particularly in extension to 10 degrees flexion to 50 degrees. She has no pitting edema or calf tenderness in the lower extremities. No rash or breakdown. Neuromuscular: She is awake, alert. Fully oriented x3. She seems to have good insight into her medical conditions. Cranial nerves 2-12 appear grossly intact. She has good range and strength throughout her upper limbs with normal sensation. Symmetric reflexes. In the lower extremities she has some medial joint line tenderness. Crepitus in the left knee and slightly limited internal and external rotation in her left hip with proximal strength 4/5 on the left compared to 4+/5 to 5-/5 on the right side. Good distal strength. Normal sensation to light touch and pinprick. Symmetric reflexes. Gait is slightly unsteady. She loses her balance using a straight cane. Short step length. Very slow ambulation. OVERALL IMPRESSION: 1. Deficits in mobility, activities of daily living, multifactorial. 2. Chronic low back pain, possible underlying lumbar spondylosis or stenosis. 3. Diffuse osteoarthritis status post right total knee replacement. 4. Headache, uncertain etiology. 5. Choking on medication, rule out dysphagia. 6. Hypertension. 7. Obesity. 8. Hyperlipidemia. 9. Status post acute renal insufficiency, improved. PLAN/SUGGESTION: 1. Physical therapy to include mobilization, balance transfers, gait training, strengthening, reconditioning. 2. Out of bed to chair. 3. Ambulated with assistance. 4. Pending speech pathology consultation. 5. Pain control. 6. Bowel regimen. Monitor for further constipation. 7. Discharge planning. GOGO HUMPHREYS M.D. MARCOS/[id number]
--- NOTE | 2018-01-20 11:58 | PN ---
Progress Note (short form) - Note Progress Note: seen and examined in room patient lying in bed / comfortable episode of choking last night per nursing - patient reports this has happened before over last several months denies difficulty swallowing solids or liquids Vital Signs Period Temp Pulse Resp BP Sys/Orozco Pulse Ox Last 24 Hr 97.7 F-98.0 F 93-99 18-20 110-151/50-92 96-98 neck supple / no nodes heart s1/S2 lungs clear bilat abd soft non tender ext no edema CBC, BMP 01/20/18 05:30 01/20/18 05:30 CBC, BMP 01/19/18 06:32 01/19/18 06:32 Microbiology 01/18/18 01:23 Cerebral Spinal Fluid - Lumbar Puncture Gram Stain - Final 01/18/18 01:23 Cerebral Spinal Fluid - Lumbar Puncture CSF Culture - Final NO GROWTH AFTER 48 HOURS INCUBATION Active Medications Acetaminophen (Tylenol -) 325 mg PO Q6H PRN PRN Reason: PAIN LEVEL 6-10 Amlodipine Besylate (Norvasc -) 10 mg PO DAILY [facility] Last Admin: 01/20/18 09:48 Dose: 10 mg Cyproheptadine HCl (Periactin -) 4 mg PO HS [facility] Last Admin: 01/19/18 22:56 Dose: 4 mg Docusate Sodium (Colace -) 200 mg PO BID [facility] Last Admin: 01/20/18 09:48 Dose: 200 mg Gabapentin (Neurontin -) 600 mg PO DAILY [facility] Last Admin: 01/20/18 09:48 Dose: 600 mg Ceftriaxone Sodium 1 gm/ (Dextrose) 50 mls @ 100 mls/hr IVPB DAILY [facility] Last Admin: 01/20/18 09:48 Dose: 100 mls/hr Indomethacin (Indocin -) 25 mg PO TID [facility] Last Admin: 01/20/18 07:13 Dose: Not Given Magnesium Oxide (Mag-Ox -) 400 mg PO BID@0800,2000 [facility] Last Admin: 01/20/18 09:48 Dose: 400 mg Metoprolol Tartrate (Lopressor -) 50 mg PO DAILY [facility] Last Admin: 01/20/18 09:48 Dose: 50 mg Oxycodone HCl (Roxicodone -) 10 mg PO Q6H PRN PRN Reason: PAIN LEVEL 6-10 Pantoprazole Sodium (Protonix -) 40 mg PO DAILY [facility] Last Admin: 01/20/18 09:48 Dose: 40 mg Polyethylene Glycol (Miralax (For Daily Use) -) 17 gm PO TID [facility] Last Admin: 01/20/18 07:13 Dose: Not Given Zolpidem Tartrate (Ambien -) 10 mg PO HS PRN PRN Reason: INSOMNIA Last Admin: 01/19/18 22:56 Dose: 10 mg # episodes of choking / repetitive events ?? request swallow eval / neuro re evaluation pending findings # new onset headaches appreciate neurology consult / follow up report less episodes of headache but currently ++ headache Indocin TID per Neurology add Mag / periactin as supplement Ct of head / MRI /MRA reviewed # HTN trend BP all home meds have NOT been renewed only renewed amlodipine # constipation Miralax / colace # chronic Lower Back pain followed as out patient by pain Managmt unsteady gait will benefit from home services await eval and home services prior to d/c Problem List - Problems (1) HTN (hypertension) Code(s): I10 - ESSENTIAL (PRIMARY) HYPERTENSION (2) Obesity (BMI 30-39.9) Code(s): E66.9 - OBESITY, UNSPECIFIED (3) Unsteady gait Code(s): R26.81 - UNSTEADINESS ON FEET (4) Headache Code(s): R51 - HEADACHE Qualifiers: Headache type: unspecified Headache chronicity pattern: acute headache Intractability: intractable Qualified Code(s): R51 - Headache (5) Hypotension Code(s): I95.9 - HYPOTENSION, UNSPECIFIED Qualifiers: Hypotension type: unspecified hypotension type Qualified Code(s): I95.9 - Hypotension, unspecified (6) Acute exacerbation of chronic low back pain Code(s): M54.5 - LOW BACK PAIN; G89.29 - OTHER CHRONIC PAIN
[2018-01-20] MEDS ORDERED: PT OWN MED DRAWER 7, Y5N ONE (13:28)
[2018-01-20 14:51] VITALS: BP 149/93; PULSE 89
--- NOTE | 2018-01-20 16:03 | DS ---
Physical Examination Vital Signs: Vital Signs Temperature 97.9 F 01/20/18 14:00 Pulse Rate 89 01/20/18 14:00 Respiratory Rate 20 01/20/18 14:00 Blood Pressure 149/93 01/20/18 14:00 O2 Sat by Pulse Oximetry (%) 98 01/20/18 10:00 Findings/Remarks: The patient is a 62F with a PMH of HTN, obesity, chronic back pain and knee pain , who presents to the ER with complaints of headache. The patient states that she had a sudden onset, 9/10 pressure like headache located in her occiput without radiation, associated with nausea without the ability to vomit, unstable gait, and "feeling funny". She denies ever having symptoms like this in the past. States took multiple doses of NSAIDs with no improvement in symptoms. She has never had a headache in the past. She denies fever, chills, CP , SOB, numbness, tingling but admits to generalized weakness. Patient had Ct of head / LP / MRI / MRA and neurology evaluation. she was started on NSAIDs for pain relief with good response She sustained episode of chocking which will observe and further investigate if reoccurs as out patient. # new onset headaches appreciate neurology consult / follow up report less episodes of headache but currently ++ headache Indocin TID per Neurology add Mag / periactin as supplement Ct of head / MRI /MRA reviewed # HTN trend BP only renewed amlodipine # constipation Miralax / colace # chronic Lower Back pain followed as out patient by pain Managmt unsteady gait will benefit from home services Constitutional: Yes: Well Nourished, No Distress, Calm, Obese Eyes: Yes: WNL, Conjunctiva Clear, EOM Intact HENT: Yes: WNL, Atraumatic, Normocephalic Neck: Yes: Supple, Trachea Midline Cardiovascular: Yes: Regular Rate and Rhythm Respiratory: Yes: Regular, CTA Bilaterally Gastrointestinal: Yes: Normal Bowel Sounds, Abdomen, Obese ...Rectal Exam: Yes: Deferred Renal/: Yes: WNL Breast(s): Yes: WNL Musculoskeletal: Yes: Back Pain, Joint Stiffness Extremities: Yes: WNL Edema: No Peripheral Pulses WNL: Yes Integumentary: Yes: WNL Neurological: Yes: WNL, Oriented, Unsteady Gait Psychiatric: Yes: Alert, Oriented Labs: CBC, BMP 12/10/18 05:30 01/20/18 05:30 Discharge Summary Reason For Visit: URINARY TRACT INFECTION/HEADACHE/HYPOTENSION Current Active Problems HTN (hypertension) (Acute) Headache (Acute) Hypotension (Acute) Obesity (BMI 30-39.9) (Acute) Unsteady gait (Acute) Condition: Improved - Instructions Disposition: HOME - Home Medications Comprehensive Discharge Medication List: Ambulatory Orders Amlodipine 10 mg q day Lansoprazole [Prevacid -] 15 mg PO DAILY 07/02/14 Cyclobenzaprine HCl 10 mg PO Q8H PRN #14 tablet 12/27/17 Naproxen [Naprosyn -] 500 mg PO BID #30 tablet 12/27/17 Gabapentin 600 mg PO DAILY 01/18/18 Metoprolol Tartrate 50 mg PO DAILY 01/18/18 Oxycodone HCl/Acetaminophen [Percocet 10-325 mg Tablet] 1 each PO DAILY Zolpidem Tartrate 10 mg PO DAILY 01/18/18
== END 2018-01-20 17:56 | disposition home or self-care (01) ==
LOC: JER 21:07 → JERBED 01-18 03:13 → J4W 01-18 17:28
PROVIDERS: ADMIT Family Medicine; ATTEND Family Medicine
PROC: 3E03329 Introduction of Other Anti-infective into Peripheral Vein, Percutaneous Approach (ICD-10-PCS; principal; 2018-01-18)
PROC: 009U3ZX Drainage of Spinal Canal, Percutaneous Approach, Diagnostic (ICD-10-PCS; 2018-01-18)
DX: G44.53 Primary thunderclap headache (principal); N39.0 Urinary tract infection, site not specified; I95.9 Hypotension, unspecified; R26.89 Other abnormalities of gait and mobility; K59.00 Constipation, unspecified; I10 Essential (primary) hypertension; E78.00 Pure hypercholesterolemia, unspecified; M54.5 Low back pain; G89.29 Other chronic pain; M19.90 Unspecified osteoarthritis, unspecified site; E66.9 Obesity, unspecified; Z68.41 Body mass index [BMI] 40.0-44.9, adult; M25.561 Pain in right knee; Z96.651 Presence of right artificial knee joint; F17.200 Nicotine dependence, unspecified, uncomplicated; R26.81 Unsteadiness on feet
CPT/HCPCS: 36415; 70450-TC; 70544-TC; 70551-TC; 80048; 80053; 80061; 81003; 81015; 82607; 82746; 82945; 83036; 83721; 83735; 84157; 84443; 85025; 85610; 85651; 86850; 86900; 86901; 87070; 87205; 93005; 93010; 99284-25; G0378; J0131; J7030

== ENCOUNTER 2018-02-07 16:51 | Emergency (ER) | payer OTHER ==
--- NOTE | 2018-02-07 17:10 | PDOC ---
Rapid Medical Evaluation Chief Complaint: Migraine Headache Time Seen by Provider: 02/07/18 17:07 Medical Evaluation: Allergies Allergy/AdvReac Type Severity Reaction Status Date / Time No Known Allergies Allergy Verified 01/17/18 21:17 02/07/18 17:08 I have performed a brief in-person evaluation of this patient. The patient presents with a chief complaint of:feeling dizzy and headache for weeks . recent admission to the hospital for same. saw today and told to come to the ER. Pertinent physical exam findings: tachy 119 I have ordered the following:EKG The patient will proceed to the ED for further evaluation.
[2018-02-07 17:32] VITALS: TEMP 98.6; BMI 34.7
--- NOTE | 2018-02-07 18:02 | PDOC ---
Attending Attestation - HPI HPI: 02/07/18 18:28 The patient is a 62 year old female, with a significant PMH of hypertension, hyperlipidemia, chronic back pain and knee pain who presents to the emergency department complaining of headache. The patient states the headache is rated 10/ 10 in intensity with associated nausea without vomiting. The patient also endorses a near syncopal event earlier today with associated palpitations and nausea. As per documentation, the patient has a recent admission to [facility] from to 01/20 for a similar complaint of headache. The patient had a MRI and CT which were negative at that time. The patient states she was prescribed Indocin for her headaches and has follow up with neurologist Dr Carcamo but has not yet followed up. The patient denies chest pain, shortness of breath, and dizziness. Denies fever, chills,, vomit, diarrhea and constipation. Denies dysuria, frequency, urgency and hematuria. Allergies: NKA Documentation prepared by Austen Cordova, acting as medical educator for Marbella Lester MD. <Austen Cordova - Last Filed: 02/07/18 18:28> - Resident Resident Name: Samuel Baum - ED Attending Attestation I have performed the following: I have examined & evaluated the patient, The case was reviewed & discussed with the resident, I agree w/resident's findings & plan, Exceptions are as noted - Physicial Exam PE: GENERAL: Awake, alert, and fully oriented, in no acute distress HEAD: No signs of trauma EYES: PERRLA, EOMI, sclera anicteric, conjunctiva clear ENT: Auricles normal inspection, hearing grossly normal, nares patent, oropharynx clear without exudates. Moist mucosa NECK: Normal ROM, supple, no lymphadenopathy, JVD, or masses LUNGS: Breath sounds equal, clear to auscultation bilaterally. No wheezes, and no crackles HEART: Tachycardic, normal S1 and S2, no murmurs, rubs or gallops ABDOMEN: Soft, nontender, normoactive bowel sounds. No guarding, no rebound. No masses EXTREMITIES: Normal range of motion, no edema. No clubbing or cyanosis. No cords, erythema, or tenderness NEUROLOGICAL: Cranial nerves II through XII grossly intact. Normal speech, normal gait. Motor and sensation intact. SKIN: Warm, Dry, normal turgor, no rashes or lesions noted. - Medical Decision Making 02/07/18 19:22 Pt is tachycardic, with continued headaches s/p recent admission. Will obtain repeat CTH. Will also obtain CTA chest to r/o PE. <Marbella Lester - Last Filed: 02/07/18 19:23>
[2018-02-07] MEDS ORDERED: SODIUM CHLORIDE 1,000 ML IV STA (18:29)
[2018-02-07] MEDS ORDERED: METOCLOPRAMIDE HCL INJECTION 10 MG/2 ML VIAL IVPUSH ONE (18:31)
[2018-02-07] MEDS ORDERED: ACETAMINOPHEN 1000 MG/100 ML VIAL (NON FORMULARY) IVPB ONE (18:31)
[2018-02-07] MEDS ORDERED: METOCLOPRAMIDE HCL INJECTION 10 MG/2 ML VIAL ONE (18:51)
[2018-02-07] MEDS ORDERED: ACETAMINOPHEN INJECTION 100 ML IVPB ONE (18:51)
[2018-02-07 19:00] LABS: BASO % 0.9 % (0-2.0); EOS % 4.7 % (0-4.5); HEMATOCRIT 39.3 % (32.4-45.2); HEMOGLOBIN 13.6 GM/dL (10.7-15.3); LYMPH % 31.8 % (8-40); MCH 28.5 pg (25.7-33.7); MCHC 34.7 g/dl (32.0-36.0); MEAN CELL VOLUME 82.1 fl (80-96); MEAN PLT VOLUME 9.9 fl (7.5-11.1); MONO % 10.2 % (3.8-10.2); NEUT % 52.4 % (42.8-82.8); PLATELET COUNT 277 K/MM3 (134-434); RBC 4.78 M/mm3 (3.60-5.2); RDW 14.4 % (11.6-15.6); WHITE BLOOD COUNT 7.5 K/mm3 (4.0-10.0)
[2018-02-07 19:18] LABS: INR 1.02 (0.83-1.09)
[2018-02-07 19:20] LABS: ACTIVATED PTT 31.1 SECONDS (25.2-36.5)
--- NOTE | 2018-02-07 19:23 | PDOC ---
History of Present Illness - General Chief Complaint: Migraine Headache Stated Complaint: Migraine Headache/CHEST PAIN Time Seen by Provider: 02/07/18 17:07 History Source: Patient Exam Limitations: No Limitations - History of Present Illness Initial Comments: 02/07/18 21:49 62 yo F with a hx of HTN, HLD, chronic back and knee pain with a recent admission earlier this month for headaches presents to the emergency department with headaches that have been persistent since discharge (01/19/2018) with new quality headache beginning 02/04/2018. Per the patient, her occipital headaches did not resolve and she began having global headaches on 02/04 that was sudden onset. Described as a "squeezing sensation" and severity of 10/10 with nausea. Denies recent falls, visual changes, photophobia, phonophobia. States her pain was not relieved when she used tylenol, gabapentin, and motrin. She was referred to Dr. Carrero but has not made an appointment for follow up. Per the patient, she denies the following: fevers, chills, vomiting, chest pain, SOB, abdominal pain, dysuria, hematuria, ataxia, lightheadedness, hematochezia, and leg pain/swelling. no recent travels, hx of PE/DVT, use of hormones, hx of cancer, and recent surgeries. Past History - Past Medical History Allergies/Adverse Reactions: Allergies Allergy/AdvReac Type Severity Reaction Status Date / Time No Known Allergies Allergy Verified 02/07/18 17:32 Home Medications: Ambulatory Orders Lansoprazole [Prevacid -] 15 mg PO DAILY 07/02/14 Cyclobenzaprine HCl 10 mg PO Q8H PRN #14 tablet 12/27/17 Gabapentin 600 mg PO DAILY 01/18/18 Metoprolol Tartrate 50 mg PO DAILY 01/18/18 Oxycodone HCl/Acetaminophen [Percocet 10-325 mg Tablet] 1 each PO DAILY Zolpidem Tartrate 10 mg PO DAILY 01/18/18 Amlodipine Besylate [Norvasc -] 10 mg PO DAILY 30 Days #30 tablet 01/20/18 Cyproheptadine [Periactin -] 4 mg PO HS 30 Days #30 tablet 01/20/18 Docusate Sodium [Colace -] 200 mg PO BID capsule 01/20/18 Gabapentin [Neurontin -] 600 mg PO DAILY capsule 01/20/18 Indomethacin [Indocin -] 25 mg PO TID 30 Days #90 capsule 01/20/18 Magnesium Oxide [Mag-Ox -] 400 mg PO BID@0800,2000 30 Days #60 tablet 01/20/18 Polyethylene Glycol 3350 [Miralax 119 gm Btl -] 17 gm PO TID bottle 01/20/18 Acetaminophen [Tylenol -] 500 mg PO Q4H PRN #60 tablet 02/07/18 Diphenhydramine HCl [Benadryl -] 25 mg PO Q8H PRN #21 capsule 02/07/18 Ibuprofen 600 mg PO QID PRN #21 tablet 02/07/18 Anemia: No Asthma: No Cancer: No Cardiac Disorders: No CVA: No COPD: No CHF: No Dementia: No Diabetes: No GI Disorders: Yes Disorders: No HTN: Yes Hypercholesterolemia: Yes Liver Disease: No Seizures: No Thyroid Disease: No - Surgical History Abdominal Surgery: No Appendectomy: No Cardiac Surgery: No Cholecystectomy: No Lung Surgery: No Neurologic Surgery: No Orthopedic Surgery: Yes - Suicide/Smoking/Psychosocial Hx Smoking History: Never smoked Have you smoked in the past 12 months: No Number of Cigarettes Smoked Daily: 1 Information on smoking cessation initiated: No 'Breaking Loose' booklet given: 01/18/18 Hx Alcohol Use: No Drug/Substance Use Hx: No Substance Use Type: None Hx Substance Use Treatment: No Review of Systems - Review of Systems Able to Perform ROS?: Yes Is the patient limited Samoan proficient: No Constitutional: Yes: Weakness. No: Chills, Diaphoresis, Fever HEENTM: No: Blurred Vision, Recent change in vision, Ear Pain, Nose Pain, Throat Pain, Mouth Pain Respiratory: No: Cough, Shortness of Breath, SOB with Exertion, Hemoptysis Cardiac (ROS): No: Chest Pain, Lightheadedness, Palpitations, Syncope, Chest Tightness ABD/GI: No: Constipated, Diarrhea, Nausea, Poor Appetite, Poor Fluid Intake, Rectal Bleeding, Vomiting, Abdominal cramping, Tarry Stools : No: Burning, Dysuria, Hematuria, Urgency Musculoskeletal: No: Back Pain, Joint Pain, Neck Pain Integumentary: No: Erythema, Flushing, Lumps, Pruritus, Rash Neurological: Yes: Headache. No: Numbness, Paresthesia, Tingling, Tremors, Unsteady Gait, Ataxia, Dizziness Psychiatric: No: Stressors Endocrine: No: Unexplained Weight Gain, Change in Weight *Physical Exam - Vital Signs Last Vital Signs Temp Pulse Resp BP Pulse Ox 98.6 F 118 H 16 124/81 100 02/07/18 17:30 02/07/18 17:30 02/07/18 17:30 02/07/18 17:30 02/07/18 17:30 - Physical Exam General Appearance: Yes: Nourished, Appropriately Dressed. No: Apparent Distress, Intoxicated HEENT: positive: EOMI, [place], Normal Voice, Symmetrical, Pharynx Normal, Hearing Grossly Normal, Other (tender to palpation in the right gnosticism region. eyes not hard rock bilaterally to palpation.). negative: Pale Conjunctivae, Scleral Icterus (R), Scleral Icterus (L), Muffled/Hoarse voice, Pharyngeal Erythema, Tonsillar Exudate, Tonsillar Erythema, Nasal Congestion, Sinus Tenderness, Excessive drooling Neck: positive: Trachea midline, Tender lateral (bilateral tenderness with increase headache sensation with palpation). negative: Tender, Lymphadenopathy (R), Lymphadenopathy (L), Tender midline Respiratory/Chest: positive: Lungs Clear, Normal Breath Sounds. negative: Chest Tender, Respiratory Distress, Accessory Muscle Use, Crackles, Rales, Rhonchi, Stridor, Wheezing, Hyperresonant Cardiovascular: positive: Regular Rhythm, S1, S2, Tachycardia. negative: Systolic Murmur Gastrointestinal/Abdominal: positive: Normal Bowel Sounds, Flat, Soft. negative : Tender Lymphatic: negative: Adenopathy Musculoskeletal: positive: Normal Inspection. negative: CVA Tenderness, Vertebral Tenderness Extremity: positive: Normal Capillary Refill, Normal Inspection, Normal Range of Motion. negative: Tender Integumentary: positive: Normal Color, Dry, Warm Neurologic: positive: ingot stripper II-XII NML intact, Fully Oriented, Alert, Normal Mood/ Affect, Normal Response, Motor Strength 5/5 Moderate Sedation - Procedure Monitoring Vital Signs: Procedure Monitoring Vital Signs Temperature 98.6 F 02/07/18 17:30 Pulse Rate 118 H 02/07/18 17:30 Respiratory Rate 16 02/07/18 17:30 Blood Pressure 124/81 02/07/18 17:30 O2 Sat by Pulse Oximetry (%) 100 02/07/18 17:30 ED Treatment Course - LABORATORY CBC & Chemistry Diagram: 02/07/18 18:51 02/07/18 18:51 - ADDITIONAL ORDERS Additional order review: Laboratory Results 02/07/18 18:51 PT with INR 12.00 INR 1.02 PTT (Actin FS) 31.1 02/07/18 18:51 RBC 4.78 MCV 82.1 MCHC 34.7 RDW 14.4 MPV 9.9 Neutrophils % 52.4 D Lymphocytes % 31.8 D Monocytes % 10.2 Eosinophils % 4.7 H Basophils % 0.9 - RADIOLOGY Radiology Studies Ordered: Category Date Time Status CHEST CTA [CT] Stat CT Scan 02/07/18 18:[address] WITHOUT CONTRAST [CT] Stat CT Scan 02/07/18 18:29 Ordered - Medications Given in the ED: ED Medications Discontinued Medications Generic Name Dose Route Start Last Admin Trade Name Freq PRN Reason Stop Dose Admin Acetaminophen 1,000 mg 02/07/18 18:31 02/07/18 19:02 Ofirmev Injection - IVPB 02/07/18 18:32 1,000 mg ONCE ONE Administration Diphenhydramine HCl 25 mg 02/07/18 18:31 02/07/18 19:02 Benadryl Injection - IVPB 02/07/18 18:32 25 mg ONCE ONE Administration Metoclopramide HCl 10 mg 02/07/18 18:31 02/07/18 19:02 Reglan Injection - IVPUSH 02/07/18 18:32 10 mg ONCE ONE Administration Medical Decision Making - Medical Decision Making 62 yo F with a hx of HTN, HLD, chronic back and knee pain with a recent admission earlier this month for headaches presents to the emergency department with headaches that have been persistent since discharge (01/19/2018) with new quality headache beginning 02/04/2018. Initial vitals; Initial Vital Signs Temp Pulse Resp BP Pulse Ox 98.6 F 118 H 16 124/81 100 02/07/18 17:30 02/07/18 17:30 02/07/18 17:30 02/07/18 17:30 02/07/18 17:30 work up ddx: migraines vs tension headache vs cluster headache. likely tension headache given she was tender to palpation in the right paravertebral region of the thoracic area with ttp in the rhomboids and trapezius. denies photo/ phonophobia. unlikely to be mass effect, vascular compromise, or new head bleed given no trauma and recent studies. denies seizures or tremors. will order head ct to rule out new mass and order the following: cbc, cmp, ua, urine culture. will treat headache with 1 l NS, 1 gram of tylenol, and 10 mg of reglan and 25 mg of benadryl. Laboratory Tests 02/07/18 02/07/18 02/07/18 18:51 18:51 18:51 WBC 7.5 RBC 4.78 Hgb 13.6 Hct 39.3 MCV 82.1 MCH 28.5 MCHC 34.7 RDW 14.4 Plt Count 277 D MPV 9.9 Absolute Neuts (auto) 3.9 Neutrophils % 52.4 D Lymphocytes % 31.8 D Monocytes % 10.2 Eosinophils % 4.7 H Basophils % 0.9 Nucleated RBC % 0 PT with INR 12.00 INR 1.02 PTT (Actin FS) 31.1 Sodium 136 Potassium 3.3 L Chloride 99 Carbon Dioxide 28 Anion Gap 10 BUN 14 Creatinine 1.0 Creat Clearance w eGFR 56.37 Random Glucose 93 Calcium 9.2 Total Bilirubin 0.2 AST 29 ALT 31 Alkaline Phosphatase 84 Creatine Kinase 183 Creatine Kinase Index 0.7 CK-MB (CK-2) 1.3 Troponin I < 0.02 B-Natriuretic Peptide 22.1 Total Protein 7.7 Albumin 3.7 labs were within normal limits. head ct does not show new changes or acute pathologies. patient had reduction of 10/10 pain to 5/10 after medication use. patient was sleeping initially when I went to re-examine her. I spoke to the patient about the proper dosing of tylenol and motrin at home for the headaches. in addition, i stressed the importance for her to follow up with neurology for follow up care and management. i reiterated her care was not complete until she did this. in addition, i spoke to Dr. Garcia to give an update on the patient's visit to the ED. I discussed the physical exam findings, ancillary test results, and final diagnoses with the patient. I answered all of the patients questions to their satisfaction. The patient was satisfied with the care received and felt comfortable with the discussed discharge and treatment plan and accepted it. They agreed to follow up with their primary medical physical physician and neurologist within 24-72 hours after discharge for follow up care and management. Dispo: Discharge *DC/Admit/Observation/Transfer Diagnosis at time of Disposition: Headache Qualifiers: Headache type: unspecified Headache chronicity pattern: unspecified pattern Intractability: not intractable Qualified Code(s): R51 - Headache - Discharge Dispostion Disposition: HOME Decision to Admit order: No - Prescriptions Prescriptions: Acetaminophen [Tylenol -] 500 mg PO Q4H PRN #60 tablet PRN Reason: Headache Diphenhydramine HCl [Benadryl -] 25 mg PO Q8H PRN #21 capsule PRN Reason: Headache Ibuprofen 600 mg PO QID PRN #21 tablet PRN Reason: Headache - Referrals Referrals: Kaykay Garcia MD [Primary Care Provider] - - Patient Instructions Printed Discharge Instructions: DI for Headache Additional Instructions: you were evaluated in the emergency department for your headache and elevated heart rate. your labs were within normal limits and your head ct did not show acute pathologies. your CT chest did not show blood clots. please take tylenol as directed on the label. you can take 650 mg of tylenol every 4-6 hours as needed for pain. In addition, you can take motrin 600 mg every 4-6 hours for pain as needed for pain. Please stay hydrated, limit bright light and sound exposure. This is very important. you need to follow up with your neurologist within the next 3 days after discharge for follow up care and management. your care is not complete until you do this. they will be able to help better manage your headaches. it is expected that your headaches will not go away completely until you have this connection. please return to the emergency department if you have worsening symptoms or new concerning symptoms such as inability to walk , confusion, fevers with headaches, and visual changes. thank you. - Post Discharge Activity
[2018-02-07 19:57] LABS: ALBUMIN 3.7 g/dl (3.4-5.0); ALK PHOS 84 U/L (45-117); BILIRUBIN,TOTAL 0.2 mg/dL (0.2-1); BLOOD UREA NITROGEN 14 mg/dL (7-18); CALCIUM 9.2 mg/dL (8.5-10.1); CHLORIDE 99 mmol/L (98-107); GLUCOSE,RANDOM 93 mg/dL (74-106); N-TERMINAL BNP 22.1 pg/ml (5-125); POTASSIUM 3.3 mmol/L (3.5-5.1); SGOT/AST 29 U/L (15-37); SGPT/ALT 31 U/L (13-61); SODIUM 136 mmol/L (136-145); TOT PROT 7.7 g/dl (6.4-8.2)
[2018-02-07 19:58] LABS: ANION GAP 10 MMOL/L (8-16); CO2 28 mmol/L (21-32)
[2018-02-07 23:15] VITALS: BP 120/68; PULSE 88
--- NOTE | 2018-02-08 13:27 | EKG ---
Test Reason : Blood Pressure : / mmHG Vent. Rate : 118 BPM Atrial Rate : 118 BPM P-R Int : 154 ms QRS Dur : 088 ms QT Int : 336 ms P-R-T Axes : 068 000 037 degrees QTc Int : 470 ms SINUS TACHYCARDIA POSSIBLE LEFT ATRIAL ENLARGEMENT BORDERLINE ECG WHEN COMPARED WITH ECG OF 19-JAN-2018 09:53, NO SIGNIFICANT CHANGE WAS FOUND Confirmed by SHAKIR XIE MD ([id number]) on 02/08/2018 1:27:03 PM Referred By: Confirmed By:SHAKIR XIE MD
== END 2018-02-07 22:54 | disposition home or self-care (01) ==
LOC: JER 16:51
PROC: 3E0337Z Introduction of Electrolytic and Water Balance Substance into Peripheral Vein, Percutaneous Approach (ICD-10-PCS; principal; 2018-02-07)
PROC: 3E033GC Introduction of Other Therapeutic Substance into Peripheral Vein, Percutaneous Approach (ICD-10-PCS; 2018-02-07)
PROC: 3E033GC Introduction of Other Therapeutic Substance into Peripheral Vein, Percutaneous Approach (ICD-10-PCS; 2018-02-07)
PROC: 3E033NZ Introduction of Analgesics, Hypnotics, Sedatives into Peripheral Vein, Percutaneous Approach (ICD-10-PCS; 2018-02-07)
DX: R51 Headache (principal); I10 Essential (primary) hypertension; E78.00 Pure hypercholesterolemia, unspecified; M54.89 Other dorsalgia; M25.569 Pain in unspecified knee; G89.29 Other chronic pain
CPT/HCPCS: 36415; 70450-TC; 71275-TC; 80053; 82550; 82553; 83880; 84484; 85025; 85610; 85730; 93005; 93010; 99282-25; J0131; J7030

== ENCOUNTER 2020-11-04 11:49 | Emergency (ER) | payer OTHER ==
[2020-11-04 12:04] VITALS: TEMP 98.2; BMI 50.0
[2020-11-04] MEDS ORDERED: FAMOTIDINE 20 MG/50 ML IVPB 20 MG/50 ML MG IVPB ONE ×2 (12:30→12:39)
[2020-11-04] MEDS ORDERED: MAG HYDROX/AL HYDROX/SIMETH -MYLANTA- ORAL SUSPENSION PO ONE (12:30)
[2020-11-04] MEDS ORDERED: LACTATED RINGERS SOLUTION 1000 ML INFUS.BAG IV ONE (12:30)
[2020-11-04] MEDS ORDERED: ONDANSETRON 4 MG/2 ML VIAL IVPUSH ONE (12:31)
[2020-11-04] MEDS ORDERED: ACETAMINOPHEN 1000 MG/100 ML VIAL (NON FORMULARY) IVPB ONE (12:36)
[2020-11-04] MEDS ORDERED: MAG HYDROX/AL HYDROX/SIMETH 30 ML UNIT-DOSE CUP ONE (12:38)
[2020-11-04] MEDS ORDERED: ONDANSETRON 4 MG/2 ML VIAL ONE (12:39)
[2020-11-04 13:18] LABS: VENOUS BASE EXCESS -0.9 mmol/L (-2-2); VENOUS O2 SATURATION 55.6 % (70-80); VENOUS PCO2 41.1 mmHg (38-52); VENOUS PH 7.385 (7.310-7.410)
[2020-11-04 13:27] LABS: BASO % 0.3 % (0-2.0); HEMATOCRIT 40.7 % (32.4-45.2); HEMOGLOBIN 13.7 GM/dL (10.7-15.3); LYMPH % 22.6 % (8-40); MCHC 33.8 g/dl (32.0-36.0); MEAN CELL VOLUME 82.9 fl (80-96); MEAN PLT VOLUME 10.5 fl (7.5-11.1); NEUT % 66.1 % (42.8-82.8); PLATELET COUNT 171 10^3/uL (134-434); RBC 4.91 M/mm3 (3.60-5.2); WHITE BLOOD COUNT 7.1 K/mm3 (4.0-10.0)
[2020-11-04] MEDS ORDERED: ACETAMINOPHEN INJECTION 100 ML IVPB ONE (13:29)
[2020-11-04 13:36] LABS: INR 1.12 (0.83-1.09); PROTHROMBIN TIME (PATIENT) 13.8 SEC (9.7-13.0)
[2020-11-04 13:39] LABS: ACTIVATED PTT 36.1 SECONDS (25.2-36.5)
[2020-11-04 13:45] LABS: CHLORIDE 100 mmol/L (98-107); SODIUM 136 mmol/L (136-145)
[2020-11-04 13:47] LABS: ALBUMIN 2.9 g/dl (3.4-5.0); ANION GAP 9 MMOL/L (8-16); BLOOD UREA NITROGEN 17.4 mg/dL (7-18); CALCIUM 9.2 mg/dL (8.5-10.1); CO2 26 mmol/L (21-32)
[2020-11-04 13:48] LABS: GLUCOSE,RANDOM 119 mg/dL (74-106); LIPASE 61 U/L (73-393); MAGNESIUM 2.2 mg/dL (1.8-2.4)
[2020-11-04 13:50] LABS: SGOT/AST 289 U/L (15-37); SGPT/ALT 262 U/L (13-61)
[2020-11-04 13:51] LABS: CREATININE 1.3 mg/dL (0.55-1.3)
[2020-11-04 13:52] LABS: BILIRUBIN,TOTAL 1.3 mg/dL (0.2-1); TOT PROT 8.2 g/dl (6.4-8.2)
[2020-11-04 13:53] LABS: ALK PHOS 253 U/L (45-117)
[2020-11-04 13:56] LABS: N-TERMINAL BNP 93.7 pg/ml (5-125)
[2020-11-04 20:22] VITALS: BP 131/73; PULSE 98
== END 2020-11-04 22:38 | disposition home or self-care (01) ==
LOC: JER 11:49
PROC: 3E0333Z Introduction of Anti-inflammatory into Peripheral Vein, Percutaneous Approach (ICD-10-PCS; principal; 2020-11-04)
PROC: 3E033GC Introduction of Other Therapeutic Substance into Peripheral Vein, Percutaneous Approach (ICD-10-PCS; 2020-11-04)
PROC: 3E033GC Introduction of Other Therapeutic Substance into Peripheral Vein, Percutaneous Approach (ICD-10-PCS; 2020-11-04)
DX: R06.02 Shortness of breath (principal); K75.81 Nonalcoholic steatohepatitis (NASH); R53.83 Other fatigue
CPT/HCPCS: 36415; 71045-TC-FY; 71275-TC; 76705-TC; 80053; 82550; 82553; 82803; 82962; 83690; 83735; 83880; 84484; 85025; 85379; 85610; 85730; 86850; 86900; 86901; 87804; 93005; 93010; 93970-TC; 99285-25; C9803; J0131; Q9967; U0003; U0005

== ENCOUNTER 2021-11-08 18:55 | Emergency (ER) | payer OTHER ==
[2021-11-08 19:01] VITALS: BP 140/77; RESP 17; TEMP 98.2; BMI 49.7
[2021-11-08] MEDS ORDERED: CYCLOBENZAPRINE HCL 10 MG TABLET (FP) PO ONE (21:43)
[2021-11-08] MEDS ORDERED: KETOROLAC TROMETHAMINE 30 MG/1 ML VIAL IM ONE (21:43)
[2021-11-08] MEDS ORDERED: KETOROLAC TROMETHAMINE 30 MG/1 ML VIAL ONE (21:45)
[2021-11-08] MEDS ORDERED: CYCLOBENZAPRINE HCL 10 MG TABLET (FP) ONE (21:45)
[2021-11-08 22:02] VITALS: PULSE 88
== END 2021-11-08 22:03 | disposition home or self-care (01) ==
LOC: JERFT 18:55
PROC: 3E0233Z Introduction of Anti-inflammatory into Muscle, Percutaneous Approach (ICD-10-PCS; principal; 2021-11-08)
DX: S20.211A Contusion of right front wall of thorax, initial encounter (principal); S86.812A Strain of other muscle(s) and tendon(s) at lower leg level, left leg, initial encounter; W23.1XXA Caught, crushed, jammed, or pinched between stationary objects, initial encounter
CPT/HCPCS: 99284-25